=== PATIENT | male | born 1950 ===

== ENCOUNTER → 2021-04-25 | Outpatient (CLI) | payer OTHER | END | disposition home or self-care (01) | LOC: Rad HDHVI 08:45 | PROVIDERS: ATTEND Internal Medicine Cardiovascular Disease | DX: M71.22 Synovial cyst of popliteal space [Baker], left knee (principal); I73.9 Peripheral vascular disease, unspecified | CPT/HCPCS: 93925 ==

== ENCOUNTER → 2023-01-23 | Outpatient (CLI) | payer OTHER ==
[~2023-01-23] VITALS: Ht 167.6 cm; Wt 90.3 kg
[~2023-01-23] MED LIST: ADENOSINE 76 MG in GIVE UN-DILUTED 0 ML IV ONE; ADENOSINE 90 MG/30 ML INJ IV ONE
== END | disposition home or self-care (01) ==
LOC: Rad HDHVI 09:03
PROVIDERS: ATTEND Internal Medicine Cardiovascular Disease
DX: Z01.810 Encounter for preprocedural cardiovascular examination (principal); I11.9 Hypertensive heart disease without heart failure; E78.5 Hyperlipidemia, unspecified; R07.89 Other chest pain; R42 Dizziness and giddiness; E23.2 Diabetes insipidus
CPT/HCPCS: 78452; 93005; 96374; 96375; A9500; J0153

== ENCOUNTER → 2024-04-22 | Outpatient (CLI) | payer MEDICAID, OTHER | END | disposition home or self-care (01) | LOC: Rad HDHVI 08:07 | PROVIDERS: ATTEND Internal Medicine Cardiovascular Disease | DX: I10 Essential (primary) hypertension (principal) | CPT/HCPCS: 93306 ==

== ENCOUNTER → 2024-05-28 | Outpatient (CLI) | payer OTHER, MEDICAID ==
[~2024-05-28] VITALS: Ht 165.1 cm; Wt 90.3 kg
== END | disposition home or self-care (01) ==
LOC: Rad HDHVI 09:21
PROVIDERS: ATTEND Internal Medicine Cardiovascular Disease
DX: I11.0 Hypertensive heart disease with heart failure (principal); I50.33 Acute on chronic diastolic (congestive) heart failure; E11.9 Type 2 diabetes mellitus without complications; E78.00 Pure hypercholesterolemia, unspecified; I20.0 Unstable angina
CPT/HCPCS: 78452; 93005; 96374; 96375; A9500; J0153

== ENCOUNTER 2025-03-24 08:47 | Outpatient (CLI) | payer OTHER, MEDICAID ==
--- NOTE | 2025-03-24 14:54 | DVHSR ---
APPROVED REPORT EXAM: Two-dimensional and M-mode echocardiogram with Doppler and color Doppler. RISK FACTORS Obesity: DIMENSIONS LVDd4.0 (3.8-5.7cm)LA (2D)3.8 (1.9-4.0cm)Aortic Root3.6 (2.0-3.7cm) LVDs2.8 (2.5-4.0cm)LA (MM) (1.9-4.0cm)Aortic Cusp Exc1.5 (1.5-2.0cm) EF (%) 60.0 (55-70%)Rt. Atrium4.2 (1.9-4.0cm)Asc. Aorta cm IVSd1.1 (0.7-1.1cm)RV (D)4.3 (1.8-2.4cm) PWd1.0 (0.7-1.1cm) Mitral Valve MitralMitral Stenosis E wave0.92m/sMV Mean GR.mmHg A wave0.77m/sMV Peak GR.mmHg E/A ratio1.22D MVAcm2 DECEL [id number] 1/2 [place] Aortic Valve Aortic ValveAortic Stenosis V10.76m/Josef Mean GR.4mmHg V21.44m/Josef Peak GR.8mmHg LVOT Diameter2.1 (1.8-2.4cm)Doppler AVA1.83cm2 Tricuspid Valve TR Velocity2.25m/s [id number] LEFT VENTRICLE The left ventricle is normal size. The left ventricle is normal in structure and function. The Ejection Fraction is within normal limits. RIGHT VENTRICLE The right ventricle is normal size. ATRIA The left atrial size is normal. The right atrium is enlarged. The interatrial septum is intact with no evidence for an atrial septal defect. MITRAL VALVE The mitral valve is normal in structure. Mitral annular calcification is mild. Mitral regurgitation is trace. PULMONIC VALVE The pulmonic valve is not well visualized. TRICUSPID VALVE The tricuspid valve is grossly normal. There is trace tricuspid regurgitation. Right ventricular systolic pressure is less than 30 mmHg. AORTIC VALVE The aortic valve opens well. The aortic valve is mildly sclerotic. No aortic regurgitation is present. GREAT VESSELS The aortic root is normal size. PERICARDIAL EFFUSION There is no pericardial effusion. Other Information Technically limited study due to body habitus. Conclusion AV SCLEROSIS EF >55% MANNY
== END 2025-03-24 17:00 | disposition home or self-care (01) ==
LOC: Rad HDHVI 08:47
PROVIDERS: ATTEND Internal Medicine Cardiovascular Disease
DX: I08.0 Rheumatic disorders of both mitral and aortic valves (principal); I25.10 Atherosclerotic heart disease of native coronary artery without angina pectoris
CPT/HCPCS: 93306

== ENCOUNTER 2025-04-13 13:33 | Outpatient (CLI) | payer OTHER, MEDICAID ==
[~2025-04-13] VITALS: Ht 162.6 cm; Wt 85.7 kg
[2025-04-13] MEDS ORDERED: ADENOSINE 90 MG/30 ML INJ IV ONE (14:48)
[2025-04-13] MEDS ORDERED: ADENOSINE 72 MG in GIVE UN-DILUTED 0 ML IV ONE (16:30)
== END 2025-04-13 17:00 | disposition home or self-care (01) ==
LOC: Rad HDHVI 13:33
PROVIDERS: ATTEND Internal Medicine Cardiovascular Disease
DX: Z13.6 Encounter for screening for cardiovascular disorders (principal); I50.33 Acute on chronic diastolic (congestive) heart failure; I51.7 Cardiomegaly; E11.40 Type 2 diabetes mellitus with diabetic neuropathy, unspecified; E78.00 Pure hypercholesterolemia, unspecified; I20.0 Unstable angina; R00.2 Palpitations
CPT/HCPCS: 78452; 93017; A9500; J0153

== ENCOUNTER 2025-04-29 10:50 | Outpatient (CLI) | payer OTHER, MEDICAID | END 2025-04-29 17:00 | disposition home or self-care (01) | LOC: Rad HDHVI 10:50 | PROVIDERS: ATTEND Internal Medicine Cardiovascular Disease | DX: I11.0 Hypertensive heart disease with heart failure (principal); I50.33 Acute on chronic diastolic (congestive) heart failure; R00.2 Palpitations | CPT/HCPCS: 93880 ==